=== PATIENT | female | born 1980 | race African-American/Black ===

== ENCOUNTER 2020-04-09 21:15 | Emergency (ER) | payer OTHER ==
[~2020-04-09] VITALS: Ht 165.1 cm; Wt 90.7 kg
[2020-04-09 21:25] VITALS: BP 117/69
[2020-04-09] MEDS ORDERED: Bacitracin Oint UD TOPIC ONE ×2 (22:19→22:30)
--- NOTE | 2020-04-09 22:19 | Emergency Room Report ---
History of Present Illness General Chief Complaint: Skin Rash/Abscess Source: Patient Present Illness HPI Is a 40-year-old female with no significant past medical history. She presents with chief complaint of an abscess to the vagina perineum area. Onset for last [address] Bustos who said it was a free abscess and told her to put warm compress on it. It started some bleeding after showering. She was concerned so she came in. No fever chills but worse with palpation. Better with rest. Pain is 7 out of 10. No drainage. No fever chills. Allergies: Coded Allergies: No Known Allergies (Unverified , 04/09/20) COVID-19 Screening Contact w/high risk pt: No Experienced COVID-19 symptoms?: No COVID-19 Testing performed BORDER POLICE: No Patient History Past Medical History: see triage record, old chart reviewed Past Surgical History: none Pertinent Family History: none Social History: Denies: smoking Now: No Immunizations: other Reviewed Nursing Documentation: PMH: Agreed; PSxH: Agreed Nursing Documentation-PMH Hx Asthma: Yes Review of Systems Eye: Denies: eye pain, blurred vision ENT: Denies: ear pain, nose congestion, throat swelling Respiratory: Denies: cough, shortness of breath Cardiovascular: Denies: chest pain, palpitations Gastrointestinal: Denies: abdominal pain, diarrhea, nausea, vomiting Musculoskeletal: Denies: back pain, joint pain Skin: Denies: rash Neurological: Denies: headache, numbness Endocrine: Denies: increased thirst, increased urine Hematologic/Lymphatic: Denies: easy bruising All Other Systems: negative except mentioned in HPI Physical Exam Vital Signs Date Time Temp Pulse Resp B/P (MAP) Pulse Ox O2 Delivery O2 Flow Rate FiO2 04/09/20 21:21 98.4 78 18 117/69 (85) 99 Room Air Vitals normal Sp02 EP Interpretation: reviewed, normal General Appearance: well appearing, no apparent distress, alert Head: normocephalic, atraumatic Eyes: bilateral eye PERRL, bilateral eye EOMI ENT: hearing grossly normal, normal pharynx Neck: full range of motion, supple, no meningismus Respiratory: chest non-tender, lungs clear, normal breath sounds Cardiovascular #1: regular rate, rhythm, no murmur Gastrointestinal: normal bowel sounds, non tender, no mass, no organomegaly, no bruit, non-distended Genitourinary: other - There is a fluctuant area of 1 cm just inferior to the vaginal area on the left side just above the perineum. Tender to palpation. Musculoskeletal: back normal, normal range of motion, gait/station normal Psychiatric: mood/affect normal Procedures Incision and Drainage Incision and Drainage : Consent: Verbal Site: Vagina Blade Size: 11 I & D Procedure: betadine prep Wound's Depth, Shape: superficial Anesthesia: 1% Lidocaine Volume Anesthetic (ccs): 1 Patient Tolerated: Well Complications: None Progress Area cleaned with Betadine. Local acetic 1% lidocaine. I made a one 1 cm incision. Small amount of pus expressed. Loculated area broken up. Patient tolerated surgery without any problem. Medical Decision Making Diagnostic Impression: Primary Impression: Abscess ER Course This patient presents with a small abscess. Probably secondary to ingrown hair or small skin breakdown from her shaving. No deep infection or necrotizing fasciitis. No Bartholin cyst. Last Vital Signs Date Time Temp Pulse Resp B/P (MAP) Pulse Ox O2 Delivery O2 Flow Rate FiO2 04/09/20 21:25 98.4 78 18 117/69 99 Room Air Status: improved Disposition: HOME, SELF-CARE Condition: Stable Scripts Trimethoprim/Sulfamethoxazole 160/800* (BACTRIM DS TABLET*) 1 Each Tablet 1 TAB ORAL Q12H, #14 TAB 0 Refills Prov: Shailesh Vargas MD 04/09/20 Mupirocin* (MUPIROCIN*) 22 Gm Oint...g. 1 APPLIC TOPIC THREE TIMES A DAY, #22 GM Prov: Shailesh Vargas MD 04/09/20 Patient Instructions: Abscess Additional Instructions: Keep wound clean. Clean first with hydrogen peroxide and then apply antibiotic ointment. Follow-up with your doctor in 3 to 5 days for recheck. Return if symptoms worsen. Shailesh Vargas MD Apr 09, 2020 22:19
[2020-04-09] MEDS ORDERED: MUPIROCIN22 GM TOPIC (22:20)
[2020-04-09] MEDS ORDERED: BACTRIM DS TAB1 EAC1 ORAL (22:20)
== END 2020-04-09 22:30 | disposition home or self-care (01) ==
LOC: EMR 22:30
DX: N76.0 Acute vaginitis (principal)
CPT/HCPCS: 10060; Z7502; 99282